=== PATIENT | female | born 2005 | race Caucasian/White ===

== ENCOUNTER 2024-11-08 09:01 | Emergency (ER) | payer MEDICAID ==
[~2024-11-08] VITALS: Ht 170.2 cm; Wt 56.7 kg
[2024-11-08 09:20] VITALS: BP 111/62; TEMP 98.2; O2SAT 97
[2024-11-08] MEDS ORDERED: CEPH500C2 PO (10:11)
[2024-11-08] MEDS ORDERED: TDAP [DIPH/PERTUSSIS/TET] 0.5 ML VIAL IM ONE (10:13)
[2024-11-08] MEDS: TDAP [DIPH/PERTUSSIS/TET] 0.5 ML VIAL IM ONE (10:46)
== END 2024-11-08 10:46 | disposition home or self-care (01) ==
LOC: ER 09:05
DX: S61.210A Laceration without foreign body of right index finger without damage to nail, initial encounter (principal); J45.909 Unspecified asthma, uncomplicated; W26.0XXA Contact with knife, initial encounter; Y93.G3 Activity, cooking and baking; Y92.89 Other specified places as the place of occurrence of the external cause; Y99.8 Other external cause status
CPT/HCPCS: 90715

== ENCOUNTER 2025-02-18 18:51 | Emergency (ER) | payer MEDICAID ==
[~2025-02-18] VITALS: Ht 170.2 cm; Wt 53.5 kg
[~2025-02-18 18:51] MED LIST: CEPH500C2 PO
[2025-02-18 19:54] VITALS: TEMP 98.2
[2025-02-18] MEDS ORDERED: FAMOTIDINE/PF INJ 20 MG/2 ML VIAL IV ONE (20:05)
[2025-02-18] MEDS ORDERED: MAG HYDROX/AL HYDROX/SIMETH 30 ML UDC ONE (20:05)
[2025-02-18] MEDS ORDERED: LIDOCAINE VISCOUS 2% UD 15 ML UDC ONE (20:05)
[2025-02-18] MEDS ORDERED: KETOROLAC TROMETHAMINE 15 MG/ML VIAL ONE (20:05)
[2025-02-18] MEDS: KETOROLAC TROMETHAMINE 15 MG/ML VIAL IV ONE (20:14)
[2025-02-18] MEDS: FAMOTIDINE/PF INJ 20 MG/2 ML VIAL IV ONE (20:14)
[2025-02-18] MEDS: MAG HYDROX/AL HYDROX/SIMETH 30 ML UDC PO ONE (20:14)
[2025-02-18] MEDS: LIDOCAINE VISCOUS 2% UD 15 ML UDC MM ONE (20:14)
[2025-02-18 20:18] LABS: BASOPHILS # (AUTO) 0.1 K/uL (0.0-0.2); BASOPHILS % (AUTO) 0.5 % (0.0-2.0); EOSINOPHILS # (AUTO) 0.5 K/uL (0.0-0.7); EOSINOPHILS % (AUTO) 4.9 % (0.0-6.0); HEMATOCRIT 36 % (33-45); HEMOGLOBIN 11.8 g/dL (11.5-14.8); LYMPHOCYTES # (AUTO) 1.6 K/uL (0.8-4.8); LYMPHOCYTES % (AUTO) 14.8 % (20.0-44.0); MEAN CORPUSCULAR HEMOGLOBIN 29 PG (26.0-33.0); MEAN CORPUSCULAR HGB CONC 33 g/dl (31.0-36.0); MEAN CORPUSCULAR VOLUME 86 fL (82-100); MONOCYTES # (AUTO) 0.9 K/uL (0.1-1.30); MONOCYTES % (AUTO) 8.8 % (2.0-12.0); NEUTROPHILS # (AUTO) 7.6 K/uL (1.8-8.9); PLATELET COUNT (AUTO) 327 K/uL (150-450); RED BLOOD CELL COUNT(AUTO) 4.14 MIL/uL (4.0-5.2); RED CELL DISTRIBUTION WIDTH 14.3 % (11.5-15.0); WHITE BLOOD COUNT (AUTO) 10.7 K/uL (4.3-11.0)
[2025-02-18 20:45] LABS: ALBUMIN 3.3 g/dL (3.4-5.0); BILIRUBIN,DIRECT 0.1 mg/dL (0.0-0.2); BILIRUBIN,TOTAL 0.3 mg/dL (0.2-1.0); CALCIUM, SERUM 9.3 mg/dL (8.5-10.1); CREATININE 0.9 mg/dL (0.6-1.3); POTASSIUM 4.4 mmol/L (3.5-5.1); TOTAL PROTEIN, SERUM 7.2 g/dL (6.4-8.2)
[2025-02-18] MEDS ORDERED: FAMO-131 PO (21:11)
[2025-02-18 21:30] VITALS: BP 119/77; O2SAT 98
== END 2025-02-18 21:31 | disposition home or self-care (01) ==
LOC: ER 18:58
DX: R10.10 Upper abdominal pain, unspecified (principal); K59.00 Constipation, unspecified; R10.13 Epigastric pain; Z79.899 Other long term (current) drug therapy
CPT/HCPCS: 99284; 96374; 96375; 85025; 80048; 83690; 80076; 36415; J1885; J1308

== ENCOUNTER 2025-09-24 23:31 | Emergency (ER) | payer MEDICAID, OTHER ==
[~2025-09-24] VITALS: Ht 162.6 cm; Wt 59.0 kg
[~2025-09-24 23:31] MED LIST changes: +FAMO-131 PO
[2025-09-25 00:24] VITALS: BP 111/70; TEMP 98.5; O2SAT 97
[2025-09-25 00:52] LABS: PLATELET COUNT (AUTO) 407 K/uL (150-450); RED BLOOD CELL COUNT(AUTO) 4.24 MIL/uL (4.0-5.2); RED CELL DISTRIBUTION WIDTH 14.3 % (11.5-15.0); WHITE BLOOD COUNT (AUTO) 12.7 K/uL (4.3-11.0)
[2025-09-25 00:58] LABS: CALCIUM, SERUM 8.6 mg/dL (8.5-10.1); CREATININE 0.8 mg/dL (0.6-1.3); SODIUM SERUM 142.0 mmol/L (136-145); UREA NITROGEN, BLOOD 8.0 mg/dL (7-18)
[2025-09-25 01:04] LABS: ASPARTATE AMINOTRANSFERASE 10.0 U/L (15-37); TOTAL PROTEIN, SERUM 7.5 g/dL (6.4-8.2)
[2025-09-25] MEDS: PANTOPRAZOLE 40 MG/PACK PACK PO ONE (01:17)
[2025-09-25] MEDS ORDERED: PANTOPRAZOLE 40 MG/PACK PACK ONE (01:17)
[2025-09-25 01:18] LABS: APPEARANCE,URINE CLEAR (CLEAR); BLOOD, URINE NEGATIVE Ery/uL (NEGATIVE); LEUKOCYTE ESTERASE ,URINE NEGATIVE (NEGATIVE); NITRITE, URINE NEGATIVE (NEGATIVE); UGLUCOSE NEGATIVE (NEGATIVE)
[2025-09-25 01:20] LABS: PREGNANCY TEST URINE QUAL NEGATIVE (NEGATIVE)
[2025-09-25] MEDS ORDERED: PANT40TA49 PO (01:25)
[2025-09-25 01:37] LABS: ADD URINE CULTURE NO; CALCIUM OXALATE CRYSTALS,UR Moderate /HPF (None Seen)
== END 2025-09-25 01:43 | disposition home or self-care (01) ==
LOC: ER 23:36
DX: K21.9 Gastro-esophageal reflux disease without esophagitis (principal); R10.20 Pelvic and perineal pain unspecified side
CPT/HCPCS: 36415; 80048-TC; 80076-TC; 81001; 83690-TC; 84702-TC; 84703-TC; 85025-TC; 87086-TC